=== PATIENT | female | born 1985 ===

== ENCOUNTER 2022-07-16 12:32 | Outpatient (CLI) | payer BC ==
[~2022-07-16 12:32] MED LIST: Iopamidol 300 61% 50 ML VIAL FS ONE
[2022-07-16 13:16] LABS: BHCG - Serum Negative (NEGATIVE); Pregs Control Background? CLEAR/WHITE (CLR/WHITE); Pregs Control Bar Appear? YES (CONTROL BAR)
== END 2022-07-16 12:33 | disposition home or self-care (01) ==
LOC: RAD 12:32
PROVIDERS: ATTEND Obstetrics & Gynecology
DX: Z31.41 Encounter for fertility testing (principal); Z32.00 Encounter for pregnancy test, result unknown
CPT/HCPCS: 36415; 58340; 74740; 84703; Q9967